=== PATIENT | male | born 1970 | race Caucasian/White ===

== ENCOUNTER 2019-10-28 09:12 | Outpatient (CLI) | payer OTHER | END 2019-10-28 23:59 | disposition home or self-care (01) | LOC: CARD 09:12 | PROVIDERS: ATTEND Family Medicine | DX: G56.02 Carpal tunnel syndrome, left upper limb (principal); K57.91 Diverticulosis of intestine, part unspecified, without perforation or abscess with bleeding; I10 Essential (primary) hypertension; I25.2 Old myocardial infarction; K21.9 Gastro-esophageal reflux disease without esophagitis; K92.1 Melena; E66.9 Obesity, unspecified; R50.9 Fever, unspecified; R11.0 Nausea; R12 Heartburn | CPT/HCPCS: 95886; 95908 ==